=== PATIENT | female | born 1935 ===

== ENCOUNTER 2020-07-30 09:00 | Inpatient (IN) | payer OTHER ==
[~2020-07-30] VITALS: Ht 152.4 cm; Wt 49.0 kg
[2020-07-30] MEDS ORDERED: PEPCID AC10 MG PO (10:51)
[2020-07-30] MEDS ORDERED: LOSARTAN POTASS25 MG PO (10:52)
[2020-07-30] MEDS ORDERED: AMLODIP PO (10:52)
[2020-07-30] MEDS ORDERED: CETRIZINE PO (10:53)
[2020-07-30] MEDS ORDERED: SINGULAIR10 MG PO (10:54)
[2020-07-30] MEDS ORDERED: SUCRALFATE PO (10:55)
[2020-07-30] MEDS ORDERED: ONDANSETRON PO (10:56)
[2020-08-06] MEDS ORDERED: SUCRALFATE1 GM (11:46)
[2020-08-06] MEDS ORDERED: DICYCLOMINE HCL20 MG (11:46)
[2020-08-06] MEDS ORDERED: ESOMEPRAZOLE MA40 MG (11:46)
[2020-08-06] MEDS ORDERED: NORVASC2.5 MG PO (11:46)
[2020-08-06] MEDS ORDERED: CETIRIZINE HCL10 MG (11:47)
[2020-08-06] MEDS ORDERED: ONDANSETRON HCL4 MG (11:47)
[2020-08-10] MEDS ORDERED: HYOSCYAMINE0.125 M1 SL (12:19)
[2020-08-10] MEDS ORDERED: NYSTATIN100000 UNI PO (12:20)
[2020-08-10] MEDS ORDERED: INTESTINEX680 M1 PO (12:20)
== END 2020-08-10 13:25 | disposition home or self-care (01) | DRG 331 ==
LOC: SURG 08-06 08:44 → O/R 08-06 08:44 → SURH 08-06 09:00 → SURG 08-06 18:44
PROVIDERS: ADMIT Surgery; ATTEND Surgery
PROC: 0DJD8ZZ Inspection of Lower Intestinal Tract, Via Natural or Artificial Opening Endoscopic (ICD-10-PCS; 2020-08-06)
PROC: 3E0F7GC Introduction of Other Therapeutic Substance into Respiratory Tract, Via Natural or Artificial Opening (ICD-10-PCS; 2020-08-06)
PROC: 0DTN4ZZ Resection of Sigmoid Colon, Percutaneous Endoscopic Approach (ICD-10-PCS; principal; 2020-08-06 09:00)
PROC: 4A12X4Z Monitoring of Cardiac Electrical Activity, External Approach (ICD-10-PCS; 2020-08-07)
DX: K57.32 Diverticulitis of large intestine without perforation or abscess without bleeding (principal); K62.4 Stenosis of anus and rectum; Z20.828 Contact with and (suspected) exposure to other viral communicable diseases; J45.20 Mild intermittent asthma, uncomplicated; J44.9 Chronic obstructive pulmonary disease, unspecified; I12.9 Hypertensive chronic kidney disease with stage 1 through stage 4 chronic kidney disease, or unspecified chronic kidney disease; N18.3 Chronic kidney disease, stage 3 (moderate)